=== PATIENT | female | born 1985 | race Caucasian/White ===

== ENCOUNTER 2023-03-01 22:56 | Emergency (ER) | payer OTHER ==
[~2023-03-01] VITALS: Ht 165.1 cm; Wt 79.4 kg
[2023-03-01 23:05] VITALS: BP_SYST 136; PULSE 105; RESP 16; TEMP 97.9; O2SAT 98
[2023-03-02 00:04] LABS: COVID19 ANTIGEN SOFIA FIA NEGATIVE (NEGATIVE)
[2023-03-02 00:15] LABS: INFLUENZA TYPE B NEGATIVE (NEGATIVE)
[2023-03-02 00:25] LABS: INFLUENZA TYPE A POSITIVE (NEGATIVE)
[2023-03-02] MEDS ORDERED: PHEDM120 PO (02:21)
[2023-03-02] MEDS ORDERED: OSEL75CA PO (02:21)
[2023-03-02] MEDS ORDERED: IBUP-1969 PO (02:21)
[2023-03-02 02:36] VITALS: BP_SYST 133; PULSE 95; RESP 16; TEMP 97.9; O2SAT 100
== END 2023-03-02 02:25 | disposition home or self-care (01) ==
LOC: SED 22:56
DX: J10.1 Influenza due to other identified influenza virus with other respiratory manifestations (principal); R05.9 Cough, unspecified; R09.81 Nasal congestion; R50.9 Fever, unspecified; Z79.899 Other long term (current) drug therapy; Z20.822 Contact with and (suspected) exposure to COVID-19
CPT/HCPCS: 36415; 99283